=== PATIENT | female | born 1955 | race Caucasian/White ===

== ENCOUNTER 2023-12-06 07:49 | Inpatient (IN) | payer MEDICARE, OTHER, SELFPAY ==
[2023-11-20 14:10] VITALS: BMI 37.8
[2023-11-20 15:17] LABS: Hemoglobin 14.6 g/dL (12.0-16.0); Mean Corp Hgb Conc. 33.2 g/dL (33.0-37.0); Mean Corpuscular Hgb 28.4 pg (27.0-31.0); Mean Corpuscular Volume 85.6 fL (81.0-99.0); Mean Platelet Volume 11.2 fL (7.4-10.4); Platelet Count 188 10^3/uL (130-400); Red Blood Cell Count 5.14 10^6/uL (4.20-5.40); Red Cell Dist. Width 13.7 % (11.5-14.5); White Blood Cell Count 6.9 10^3/uL (4.8-10.8)
[2023-11-20 15:55] LABS: ALT (SGPT) 22 U/L (0-35); AST (SGOT) 24 U/L (14-36); Albumin 4.3 g/dl (3.5-5.0); Alkaline Phosphatase 57 U/L (38-126); Blood Urea Nitrogen 20 mg/dl (7-17); Calcium 10.2 mg/dl (8.4-10.2); Carbon Dioxide 29 mmol/L (22-30); Chloride 102 mmol/L (98-107); Estimated Creatinine Clearance 76 ml/min; Glucose 105 mg/dl (70-99); Potassium 4.9 mmol/L (3.5-5.1); Sodium 142 mmol/L (135-145); Total Bilirubin 0.5 mg/dl (0.2-1.3); eGFR > 60.00
[2023-11-21 09:06] LABS: Glycohemoglobin (HgbA1c) 5.8 % (4.0-5.6)
[2023-11-30 10:27] VITALS: BMI 37.8
[2023-12-06] VITALS (18 sets, daily range): BP systolic 92–162; BP diastolic 44–91; PULSE 75; O2SAT 98
[2023-12-06] MEDS: TYLENOL 650 MG PO ×4 (08:34→20:34)
[2023-12-06] MEDS: CELEBREX 200 MG PO (08:34)
[2023-12-06] MEDS: NORMOSOL-R/PLASMALYTE-A 1000 IV ×2 (08:35→16:59)
[2023-12-06] MEDS: ROXICODONE 5 MG PO ×2 (12:05→21:52)
[2023-12-06] MEDS: ZOFRAN 4 MG IV (14:05)
--- NOTE | 2023-12-06 14:48 | W.PN.UPDATE ---
Update Note
Progress Note Update
R knee OA s/p R TKA w/ Dr Bhagat 12/06/23
DVT prophylaxis - ASA, b/l venous foot pumps
HTN - + parameters - monitor BP
Paroxysmal ventricular tachycardia and chronic LBBB - monitor on tele
- Continue BB
EARLENE, compliant w/ CPAP - monitor O2
- IS
- Resume CPAP HS
GERD - daily PPI while on post-op pain meds
Chronic constipation - add daily Miralax to bowel regimen of Colace and Senna
Hypercholesterolemia
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
Diverticulosis
Chronic PND
Anxiety
HSV
Prediabetes, A1c 5.8
Obesity, BMI 37.8 (Cefadroxil)
H/o tobacco abuse
[2023-12-06] MEDS: COMPAZINE 5 MG IV (15:45)
[2023-12-06] MEDS: ANCEF 5 IV (16:59)
[2023-12-06] MEDS: CRESTOR 2.5 MG PO (16:59)
[2023-12-06] MEDS: ASPIRIN 325 MG PO (17:00)
[2023-12-06] MEDS: PROTONIX 40 MG PO (17:00)
[2023-12-06] MEDS: TYLENOL PO ×2 (17:18)
[2023-12-06] MEDS: DECADRON 4 MG PO (20:34)
[2023-12-06] MEDS: SENOKOT PO (20:34)
[2023-12-06] MEDS: COLACE 100 MG PO (20:34)
[2023-12-06] MEDS: BACTROBAN 2% OINTMENT 1 APPLIC NASAL (20:35)
[2023-12-07] MEDS: TYLENOL 650 MG PO ×4 (00:04→12:36)
[2023-12-07] MEDS: ANCEF 5 IV (01:52)
[2023-12-07] MEDS: ROXICODONE 5 MG PO ×3 (01:52→12:36)
[2023-12-07 03:13] VITALS: BP 112/59
[2023-12-07 07:20] VITALS: BP 126/61
[2023-12-07] MEDS: MIRALAX 17 GRAMS PO (08:14)
[2023-12-07] MEDS: ASPIRIN 325 MG PO (08:14)
[2023-12-07] MEDS: DECADRON 4 MG PO (08:14)
[2023-12-07] MEDS: SENOKOT 17.2 MG PO (08:14)
[2023-12-07] MEDS: COLACE 100 MG PO (08:14)
[2023-12-07] MEDS: PROTONIX 40 MG PO (08:14)
[2023-12-07] MEDS: BACTROBAN 2% OINTMENT 1 APPLIC NASAL (08:14)
[2023-12-07] MEDS: MOBIC 15 MG PO (08:14)
[2023-12-07] MEDS: ZETIA 10 MG PO (08:15)
[2023-12-07] MEDS: VITAMIN D3 (cholecalciferol) 25 MCG PO (08:15)
[2023-12-07] MEDS: TOPROL XL 50 MG PO (08:18)
[2023-12-07 10:03] VITALS: BP 125/64; BP 128/68; PULSE 68; O2SAT 95
[2023-12-07 11:05] VITALS: BP 115/55
--- NOTE | 2023-12-07 12:05 | W.PN.ORTHO ---
Today's Communication / Plan
-
D/c today since clinically stable, did well w/ therapy.
Assessment
.
Distal Motor Intact: Yes
Dressing:
Clean, dry and intact.
Assessment:
R knee OA s/p R TKA w/ Dr Bhagat 12/06/23
DVT prophylaxis - ASA, b/l venous foot pumps
HTN - + parameters - BPs overall stable
Paroxysmal ventricular tachycardia and chronic LBBB - maintaining NSR/LBBB on tele post-surgery
- Continue BB
EARLENE, compliant w/ CPAP - O2 stable on RA
- IS
- Resumed CPAP HS
GERD - daily PPI while on post-op pain meds
Chronic constipation - continue daily Miralax w/ bowel regimen of Colace and Senna
Hypercholesterolemia
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
Diverticulosis
Chronic PND
Anxiety
HSV
Prediabetes, A1c 5.8
Obesity, BMI 37.8 (Cefadroxil)
H/o tobacco abuse
Plan
.
Surgery / Date: R TKA w/ Dr Bhagat 12/06/23
DVT Prophylaxis: Aspirin
Activity:
Out of bed.
PT/OT
Discharge Plan: Home w/ Outpatient PT
Subjective
.
.:
Patient resting comfortably in her chair.
R knee pain tolerable w/ current pain meds.
Denies any new significant compliants.
Eager for potential d/c today.
Vital Signs and Labs
.
Vital Signs and Labs:
Lab Results
11/20/23 13:43
11/20/23 13:43
Temp Pulse Resp BP Pulse Ox
97.6 F 66 18 115/55 97
12/07/23 11:05 12/07/23 11:05 12/07/23 11:05 12/07/23 11:05 12/07/23 11:05
Non-invasive Hgb result: 12.3
Physical Exam
-
HEENT: No pallor, cyanosis, or jaundice. Throat clear.
NECK: Supple. No JVD.
RESPIRATORY: Lungs clear to auscultation.
CVS: S1, S2 normal. RRR.�
ABDOMEN: Soft, non-tender. No distension. Obese.
EXTREMITIES: Expected post-surgical R knee edema. Strength equal, no calf pain with palpation/dorsiflexion. Calves soft.
COMPUTER SYSTEMS CONSULTANT: AOx3. No focal deficits. door captain grossly intact
--- NOTE | 2023-12-07 12:06 | CM ---
Met with pt and her at bedside
Pt lives with her in a 2 story home in a [place] community; 1 step to enter, bed/bath on FF
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
DME - rolling walker, cane, shower chair, raised toilet seat, CPAP
SNF/HH - denies past hx
Has ride at discharge
PCP - Purvi Geiger
Pharm - [facility]
Plan is for outpatient PT. Has Rx and has appt tomorrow at [facility] location
Plan - home with outpatient PT
[2023-12-07 12:09] VITALS: BP 115/55; BP 123/57; BP 130/64; PULSE 66; PULSE 67; O2SAT 97
--- NOTE | 2023-12-07 12:22 | W.DS.TRANS ---
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
-
Discharge Instructions:
Discharge Diagnosis/Procedures R knee OA s/p R TKA w/ Dr Bhagat 12/06/23
Diet Other diet
Additional Diets Diabetic carb controlled x1 week for wound
healing/infection prevention
Activity As tolerated,With Walker
Driving Restrictions Not until seen by your Dr
Bathing Restrictions OK to Shower
Other Services PT
Instructions:
Stand-Alone Forms: Total Hip/Knee Replacement D/C
Changes to Home Medications: Yes
Discharge Medications:
DC Medications w/original date entered in [employer]
Fish Oil 1,250 mg PO DAILY 11/30/23
amoxicillin 500 mg capsule 2,000 mg PO PRN PRN 1 hour prior dental work; 11/30/23
cholecalciferol (vitamin D3) 25 mcg (1,000 unit) tablet (Vitamin D3) 25 mcg PO DAILY 11/30/23
coenzyme Q10 100 mg capsule (CoQ-10) 100 mg PO DAILY 11/30/23
ezetimibe 10 mg tablet 10 mg PO DAILY 11/30/23
metoprolol succinate 50 mg tablet,extended release 24 hr 50 mg PO DAILY 11/30/23
multivitamin with minerals (Hair,Skin and Nails tablet) 2 tab PO DAILY 11/30/23
multivitamin with minerals-folic acid 0.4 mg tablet (One-A-Day Women's 50 Plus) 1 tab PO DAILY 11/30/23
mupirocin 2 % topical ointment 1 applic topical BID 11/30/23
semaglutide (weight loss) 0.5 mg/0.5 mL subcutaneous pen injector (Wegovy) 0.5 mg SC QWEEK 11/30/23
acetaminophen 500 mg tablet (Tylenol Extra Strength) 1,000 mg (2 x 500 mg) PO Q6H #60 tabs 12/07/23
alprazolam 0.25 mg tablet 0.25 mg PO DAILYPRN PRN anxiety #1 tab 12/07/23
aspirin 325 mg tablet 325 mg PO DAILY #30 tabs 12/07/23
celecoxib 100 mg capsule (Celebrex) 100 mg PO BID #30 caps 12/07/23
dexamethasone 4 mg tablet 4 mg PO BID Anti-inflammatory #7 tabs 12/07/23
docusate sodium 100 mg capsule 100 mg PO BID #30 caps 12/07/23
furosemide 20 mg tablet 20 mg PO DAILYPRN PRN hypertension/edema #0 tabs 12/07/23
ketoconazole 2 % topical cream 1 applic topical DAILYPRN PRN fungal rash #0 grams 12/07/23
lisinopril 40 mg tablet 40 mg PO DAILY #1 tab 12/07/23
omeprazole magnesium 20 mg tablet,delayed release (Prilosec OTC) 20 mg PO DAILY #0 tabs 12/07/23
ondansetron HCl 4 mg tablet 4 mg PO Q6H PRN nausea and vomiting #30 tabs 12/07/23
oxycodone 5 mg tablet 5 - 10 mg (1 - 2 x 5 mg) PO Q6H PRN moderate-severe pain #30 tabs 12/07/23
polyethylene glycol 3350 17 gram oral powder packet (Miralax) 17 g PO DAILY #0 ea 12/07/23
rosuvastatin 5 mg tablet 2.5 mg (1/2 x 5 mg) PO MOWEFR #0 tabs 12/07/23
sennosides 8.6 mg tablet (Senna Laxative) 17.2 mg (2 x 8.6 mg) PO BID #30 tabs 12/07/23
valacyclovir 500 mg tablet 500 mg PO DAILYPRN PRN cold sores #1 tab 12/07/23
Home Medication Changes
acetaminophen 500 mg tablet (Tylenol Extra Strength) 1,000 mg (2 x 500 mg) PO Q6H #60 tabs 12/07/23
aspirin 325 mg tablet 325 mg PO DAILY #30 tabs 12/07/23
celecoxib 100 mg capsule (Celebrex) 100 mg PO BID #30 caps 12/07/23
dexamethasone 4 mg tablet 4 mg PO BID Anti-inflammatory #7 tabs 12/07/23
docusate sodium 100 mg capsule 100 mg PO BID #30 caps 12/07/23
omeprazole magnesium 20 mg tablet,delayed release (Prilosec OTC) 20 mg PO DAILY #0 tabs 12/07/23
ondansetron HCl 4 mg tablet 4 mg PO Q6H PRN nausea and vomiting #30 tabs 12/07/23
oxycodone 5 mg tablet 5 - 10 mg (1 - 2 x 5 mg) PO Q6H PRN moderate-severe pain #30 tabs 12/07/23
polyethylene glycol 3350 17 gram oral powder packet (Miralax) 17 g PO DAILY #0 ea 12/07/23
rosuvastatin 5 mg tablet 2.5 mg (1/2 x 5 mg) PO MOWEFR #0 tabs 12/07/23
sennosides 8.6 mg tablet (Senna Laxative) 17.2 mg (2 x 8.6 mg) PO BID #30 tabs 12/07/23 4
Pending Results: Yes (Hep C antibody)
[2023-12-07 20:11] LABS: Hepatitis C Antibody Negative (Negative)
== END 2023-12-07 14:05 | disposition home or self-care (01) | DRG 470 ==
LOC: 2 SOUTH 07:49
PROVIDERS: ADMITTING PHYSICIAN Orthopaedic Surgery; FAMILY PHYSICIAN Internal Medicine; REFERRING PHYSICIAN Internal Medicine Cardiovascular Disease
PROC: 0SRC069 Replacement of Right Knee Joint with Oxidized Zirconium on Polyethylene Synthetic Substitute, Cemented, Open Approach (ICD-10-PCS; 2023-12-06)
DX: M17.11 Unilateral primary osteoarthritis, right knee (principal); I47.20 Ventricular tachycardia, unspecified; E66.9 Obesity, unspecified; Z68.37 Body mass index [BMI] 37.0-37.9, adult; E78.00 Pure hypercholesterolemia, unspecified; K21.9 Gastro-esophageal reflux disease without esophagitis; I10 Essential (primary) hypertension
CPT/HCPCS: 36415; 73560; 80053; 83036; 85027; 86803; 87070; 97110; 97116; 97162; 97166; 97530; 97535

== ENCOUNTER 2024-03-27 07:54 | Inpatient (IN) | payer MEDICARE, OTHER, SELFPAY ==
[2024-03-12 14:43] VITALS: BMI 35.0
[2024-03-12 15:08] LABS: Hematocrit 44.5 % (37.0-47.0); Hemoglobin 14.5 g/dL (12.0-16.0); Mean Corp Hgb Conc. 32.6 g/dL (33.0-37.0); Mean Corpuscular Hgb 28.5 pg (27.0-31.0); Mean Corpuscular Volume 87.4 fL (81.0-99.0); Mean Platelet Volume 10.7 fL (7.4-10.4); Platelet Count 182 10^3/uL (130-400); Red Blood Cell Count 5.09 10^6/uL (4.20-5.40); Red Cell Dist. Width 13.1 % (11.5-14.5); White Blood Cell Count 7.4 10^3/uL (4.8-10.8)
[2024-03-12 15:28] LABS: ALT (SGPT) 17 U/L (0-35); AST (SGOT) 22 U/L (14-36); Albumin 4.3 g/dl (3.5-5.0); Alkaline Phosphatase 67 U/L (38-126); Blood Urea Nitrogen 17 mg/dl (7-17); Calcium 9.9 mg/dl (8.4-10.2); Carbon Dioxide 30 mmol/L (22-30); Chloride 98 mmol/L (98-107); Estimated Creatinine Clearance 75 ml/min; Glucose 86 mg/dl (70-99); Potassium 4.6 mmol/L (3.5-5.1); Sodium 137 mmol/L (135-145); Total Bilirubin 0.3 mg/dl (0.2-1.3); Total Protein 7.2 g/dl (6.3-8.2); eGFR > 60.00
[2024-03-13 09:51] LABS: Glycohemoglobin (HgbA1c) 5.6 % (4.0-5.6)
[2024-03-21 13:28] VITALS: BMI 35.0
[2024-03-27] VITALS (15 sets, daily range): BP systolic 105–143; BP diastolic 3–93; PULSE 72; O2SAT 98
--- NOTE | 2024-03-27 08:11 | W.PN.UPDATE ---
Update Note
Progress Note Update
L knee OA s/p L TKA w/ Dr Bhagat 03/27/24
- s/p R TKA w/ Dr Bhagat 12/06/23
DVT prophylaxis - ASA, b/l venous foot pumps
HTN - + parameters - monitor BP
Paroxysmal ventricular tachycardia and chronic LBBB - monitor on tele
- Continue BB
EARLENE, compliant w/ CPAP - monitor O2
- IS
- Resume CPAP HS
GERD - daily PPI while on post-op pain meds
Chronic constipation - add daily Miralax to bowel regimen of Colace and Senna
Hypercholesterolemia
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
Diverticulosis
Chronic PND
Anxiety
HSV
Prediabetes, A1c 5.8
Obesity, BMI 35.0 (Cefadroxil)
H/o tobacco abuse
[2024-03-27 08:24] LABS: Glucose - Point of Care 86 mg/dl (70-99)
[2024-03-27] MEDS: CELEBREX 200 MG PO (08:29)
[2024-03-27] MEDS: NORMOSOL-R/PLASMALYTE-A 1000 IV ×2 (08:37→16:00)
[2024-03-27] MEDS: BACTROBAN NASAL 1 GRAM NASAL (08:51)
[2024-03-27] MEDS: TYLENOL PO (15:17)
[2024-03-27] MEDS: ProAmatine PO ×2 (15:19→18:28)
--- NOTE | 2024-03-27 15:48 | PTCARENOTE ---
pt arrived to [address] [place] [address] [id number] via bed at 1500. pt c/o feeling nauseous upon arrival which resolved quickly with some deep breaths. pt placed on telemetry-reading SR w/BBC in 's. assessment completed as documented. pt oriented to room, call
manriquez, bed controls and plan of care with verbalized understanding. denies knee pain. tolerating sips of water. care ongoing.
[2024-03-27] MEDS: TYLENOL 650 MG PO ×2 (16:02→21:17)
[2024-03-27] MEDS: ZETIA 10 MG PO (16:02)
[2024-03-27] MEDS: CRESTOR 2.5 MG PO (16:03)
[2024-03-27] MEDS: VITAMIN D3 (cholecalciferol) 25 MCG PO (16:03)
[2024-03-27] MEDS: FLORASTOR 250 MG PO (16:05)
[2024-03-27] MEDS: ANCEF 5 IV (16:09)
[2024-03-27] MEDS: ZOFRAN 4 MG IV (18:31)
[2024-03-27] MEDS: DECADRON 4 MG PO (21:17)
[2024-03-27] MEDS: COLACE 100 MG PO (21:17)
[2024-03-27] MEDS: BACTROBAN 2% OINTMENT 1 APPLIC NASAL (21:18)
[2024-03-27] MEDS: SENOKOT 17.2 MG PO (21:18)
[2024-03-27] MEDS: ASPIRIN 325 MG PO (21:18)
[2024-03-27] MEDS: NEURONTIN 300 MG PO (21:26)
[2024-03-28] MEDS: ANCEF 5 IV (00:16)
[2024-03-28] MEDS: TYLENOL 650 MG PO ×3 (00:16→09:26)
[2024-03-28] MEDS: ROXICODONE 5 MG PO ×2 (00:17→06:39)
[2024-03-28 03:15] VITALS: BP 110/65
[2024-03-28 07:15] VITALS: BP 136/72
[2024-03-28 07:40] VITALS: BP 136/72
[2024-03-28] MEDS: BACTROBAN 2% OINTMENT 1 APPLIC NASAL (09:15)
[2024-03-28] MEDS: MIRALAX 17 GRAMS PO (09:21)
[2024-03-28] MEDS: CELEBREX 200 MG PO (09:21)
[2024-03-28] MEDS: COLACE 100 MG PO (09:21)
[2024-03-28] MEDS: FLORASTOR 250 MG PO (09:21)
[2024-03-28] MEDS: DECADRON 4 MG PO (09:21)
[2024-03-28] MEDS: ASPIRIN 325 MG PO (09:21)
[2024-03-28] MEDS: SENOKOT 17.2 MG PO (09:25)
[2024-03-28] MEDS: PROTONIX 40 MG PO (09:25)
[2024-03-28] MEDS: TOPROL XL 50 MG PO (09:25)
[2024-03-28] MEDS: ProAmatine PO (09:25)
[2024-03-28] MEDS: VITAMIN D3 (cholecalciferol) 25 MCG PO (09:26)
[2024-03-28] MEDS: ZETIA 10 MG PO (09:26)
--- NOTE | 2024-03-28 10:04 | W.PN.ORTHO ---
Today's Communication / Plan
-
Await PT and OT recs.
D/c later today if remaining clinically stable.
Assessment
.
Distal Motor Intact: Yes
Dressing:
Scant, old incisional bleeding.
Assessment:
L knee OA s/p L TKA w/ Dr Bhagat 03/27/24
- s/p R TKA w/ Dr Bhagat 12/06/23
DVT prophylaxis - ASA, b/l venous foot pumps
HTN - + parameters - BPs stable
Paroxysmal ventricular tachycardia and chronic LBBB - rhythm stable on tele
- Continue BB
H/o orthostasis after R TKA - did advise staying hydrated, holding Lisinopril for SBP <130 while on Oxycodone, and minimizing opioids as able to prevent further episodes of orthostasis
- Lisinopril dose lowered per PCP since previous R TKA
- Monitor BPs w/ therapy
EARLENE, compliant w/ CPAP - O2 stable on RA
- IS
- Resumed CPAP HS
GERD - daily PPI while on post-op pain meds
Chronic constipation - added daily Miralax to bowel regimen of Colace and Senna
Hypercholesterolemia
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
Diverticulosis
Chronic PND
Anxiety
HSV
Prediabetes, A1c 5.8
Obesity, BMI 35.0 (Cefadroxil)
H/o tobacco abuse
Plan
.
Surgery / Date: L TKA w/ Dr Bhagat 03/27/24
DVT Prophylaxis: Aspirin
Activity:
Out of bed.
PT/OT
Discharge Plan: Home w/ Outpatient PT
Subjective
.
.:
Patient resting comfortably in bed this AM.
L knee pain tolerable w/ current pain meds.
PONV improved after Zofran yesterday.
Eager for potential d/c today.
Vital Signs and Labs
.
Vital Signs and Labs:
Lab Results
03/12/24 13:50
03/12/24 13:50
Temp Pulse Resp BP Pulse Ox
98 F 86 17 136/72 98
03/28/24 07:15 03/28/24 09:25 03/28/24 07:15 03/28/24 09:25 03/28/24 07:15
Non-invasive Hgb result: 11.3
Physical Exam
-
HEENT: No pallor, cyanosis, or jaundice. Throat clear.
NECK: Supple. No JVD.
RESPIRATORY: Lungs clear to auscultation.
CVS: S1, S2 normal. RRR.�
ABDOMEN: Soft, non-tender. No distension. Obese.
EXTREMITIES: Expected post-surgical L knee edema. Strength equal, no calf pain with palpation/dorsiflexion. Calves soft.
GARNETT FEEDER: AOx3. No focal deficits. milled rubber tender grossly intact
--- NOTE | 2024-03-28 10:23 | W.DS.TRANS ---
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
-
Discharge Instructions:
Discharge Diagnosis/Procedures L knee OA s/p L TKA w/ Dr Bhagat 03/27/24
Diet Other diet
Additional Diets Diabetic carb controlled x1 week for wound
healing/infection prevention
Activity As tolerated,With Walker
Driving Restrictions Not until seen by your Dr
Bathing Restrictions OK to Shower
Other Services PT
Wound Care Dressing to be removed 1 week post-surgery
Instructions:
Stand-Alone Forms: Total Hip/Knee Replacement D/C
Changes to Home Medications: Yes
Discharge Medications:
DC Medications w/original date entered in [employer]
amoxicillin 500 mg capsule 2,000 mg PO PRN PRN 1 hour prior dental work; 11/30/23
cholecalciferol (vitamin D3) 25 mcg (1,000 unit) tablet (Vitamin D3) 25 mcg PO DAILY 11/30/23
coenzyme Q10 100 mg capsule (CoQ-10) 100 mg PO DAILY 11/30/23
ezetimibe 10 mg tablet 10 mg PO DAILY 11/30/23
metoprolol succinate 50 mg tablet,extended release 24 hr 50 mg PO DAILY 11/30/23
multivitamin with minerals-folic acid 0.4 mg tablet (One-A-Day Women's 50 Plus) 1 tab PO DAILY 11/30/23
ketoconazole 2 % topical cream 1 applic topical DAILYPRN PRN fungal rash #0 grams 12/07/23
rosuvastatin 5 mg tablet 2.5 mg (1/2 x 5 mg) PO MOWEFR #0 tabs 12/07/23
valacyclovir 500 mg tablet 500 mg PO DAILYPRN PRN cold sores #1 tab 12/07/23
Hand Skin Nails Gummy 2 gum PO HS 03/11/24
Probiotic 2 gum PO HS 03/11/24
diphenhydramine 25 mg-acetaminophen 500 mg tablet (Tylenol PM Extra Strength) 2 tab PO HS PRN sleep 03/11/24
doxycycline hyclate 100 mg tablet 100 mg PO BID PRN rash in scalp 03/11/24
fluticasone propionate 50 mcg/actuation nasal spray,suspension 1 spray intranasal HS 03/11/24
semaglutide (weight loss) 1 mg/0.5 mL subcutaneous pen injector (Wegovy) 1 mg SC QWEEK 03/11/24
celecoxib 200 mg capsule 200 mg PO DAILY anti-inflammatory #14 caps 03/12/24
dexamethasone 4 mg tablet 4 mg PO BID inflammation #6 tabs 03/12/24
mupirocin 2 % topical ointment 1 applic topical BID infection prevention #1 tube 03/12/24
ondansetron 4 mg disintegrating tablet 4 mg PO Q6H PRN n/v #20 tabs 03/12/24
oxycodone 5 mg tablet 5 mg PO Q6H PRN 1 tab moderate pain, 2 tabs severe pain #30 tabs 03/12/24
acetaminophen 500 mg tablet (Tylenol Extra Strength) 1,000 mg (2 x 500 mg) PO Q6H #60 tabs 03/28/24
alprazolam 0.25 mg tablet 0.25 mg PO DAILYPRN PRN anxiety #0 tabs 03/28/24
aspirin 325 mg tablet 325 mg PO DAILY #30 tabs 03/28/24
docusate sodium 100 mg capsule 100 mg PO BID #30 caps 03/28/24
furosemide 20 mg tablet 20 mg PO DAILYPRN PRN hypertension/edema #0 tabs 03/28/24
gabapentin 300 mg capsule 300 mg PO HS PRN neuropathic pain #30 caps 03/28/24
lisinopril 40 mg tablet 20 mg (1/2 x 40 mg) PO DAILY #1 tab 03/28/24
omeprazole magnesium 20 mg tablet,delayed release (Prilosec OTC) 20 mg PO DAILY #0 tabs 03/28/24
polyethylene glycol 3350 17 gram oral powder packet (Miralax) 17 g PO DAILY #0 ea 03/28/24
sennosides 8.6 mg tablet (Jolanta-thao) 17.2 mg (2 x 8.6 mg) PO BID #30 tabs 03/28/24
Home Medication Changes
celecoxib 200 mg capsule 200 mg PO DAILY anti-inflammatory #14 caps 03/12/24
dexamethasone 4 mg tablet 4 mg PO BID inflammation #6 tabs 03/12/24
ondansetron 4 mg disintegrating tablet 4 mg PO Q6H PRN n/v #20 tabs 03/12/24
oxycodone 5 mg tablet 5 mg PO Q6H PRN 1 tab moderate pain, 2 tabs severe pain #30 tabs 03/12/24
acetaminophen 500 mg tablet (Tylenol Extra Strength) 1,000 mg (2 x 500 mg) PO Q6H #60 tabs 03/28/24
aspirin 325 mg tablet 325 mg PO DAILY #30 tabs 03/28/24
docusate sodium 100 mg capsule 100 mg PO BID #30 caps 03/28/24
gabapentin 300 mg capsule 300 mg PO HS PRN neuropathic pain #30 caps 03/28/24
omeprazole magnesium 20 mg tablet,delayed release (Prilosec OTC) 20 mg PO DAILY #0 tabs 03/28/24
polyethylene glycol 3350 17 gram oral powder packet (Miralax) 17 g PO DAILY #0 ea 03/28/24
sennosides 8.6 mg tablet (Jolanta-thao) 17.2 mg (2 x 8.6 mg) PO BID #30 tabs 03/28/24
Pending Results: No
[2024-03-28 10:40] VITALS: BP 109/60; BP 118/61; PULSE 79
[2024-03-28] MEDS: TYLENOL PO (12:00)
[2024-03-28 12:26] VITALS: BP 132/74; PULSE 69; O2SAT 99
[2024-03-28] MEDS: TORADOL 15 MG IV (12:30)
[2024-03-28 12:41] VITALS: BP 114/63
[2024-03-28] MEDS: ProAmatine 2.5 MG PO (12:44)
--- NOTE | 2024-03-28 13:04 | CM ---
Alert awake oriented patient who lives with her Sudarshan who lives in a 2 story home with 1 step to enter and bed and bathroom on first floor. 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
declined need.today. She has set up own out pt PT.
No VN hx / No SNF history
Pharmacy [facility]
PCP DR Geiger
PLAN Home Declined VN
== END 2024-03-28 14:00 | disposition home or self-care (01) | DRG 470 ==
LOC: 2 SOUTH 07:54
PROVIDERS: ADMITTING PHYSICIAN Orthopaedic Surgery; FAMILY PHYSICIAN Internal Medicine
PROC: 0SRD0J9 Replacement of Left Knee Joint with Synthetic Substitute, Cemented, Open Approach (ICD-10-PCS; 2024-03-27)
DX: M17.12 Unilateral primary osteoarthritis, left knee (principal); I47.20 Ventricular tachycardia, unspecified; Z88.8 Allergy status to other drugs, medicaments and biological substances; I10 Essential (primary) hypertension; I44.7 Left bundle-branch block, unspecified; G47.33 Obstructive sleep apnea (adult) (pediatric); K59.09 Other constipation; K21.9 Gastro-esophageal reflux disease without esophagitis; Z95.2 Presence of prosthetic heart valve; F41.9 Anxiety disorder, unspecified; K57.90 Diverticulosis of intestine, part unspecified, without perforation or abscess without bleeding; E78.00 Pure hypercholesterolemia, unspecified; E66.9 Obesity, unspecified; Z68.35 Body mass index [BMI] 35.0-35.9, adult; E78.5 Hyperlipidemia, unspecified; Z86.79 Personal history of other diseases of the circulatory system; Z87.891 Personal history of nicotine dependence
CPT/HCPCS: 36415; 73560; 80053; 82962; 83036; 85027; 87070; 97110; 97116; 97162; 97166; 97535; C1713; C1776